=== PATIENT | male | born 1985 | race Asian ===

== ENCOUNTER → 2021-02-27 | Outpatient (CLI) | payer MEDICAID ==
[2021-02-27] VITALS (8 sets, daily range): BP systolic 135–148; BP diastolic 80–96
[~2021-02-27] VITALS: Ht 177.8 cm; Wt 90.7 kg
[~2021-02-27] MED LIST: REGENERON 1200mg/250ml NS 250 ML IV ONE
== END | disposition home or self-care (01) ==
LOC: ER 14:59
PROVIDERS: ATTEND Internal Medicine
DX: U07.1 COVID-19 (principal)
CPT/HCPCS: J7050; M0243; Q0244